=== PATIENT | female | born 1985 | race Caucasian/White ===

== ENCOUNTER → 2018-09-16 | Outpatient (CLI) | payer OTHER | LOC: FIMAGING 12:09 | PROVIDERS: ATTEND Obstetrics & Gynecology | DX: O09.522 Supervision of elderly multigravida, second trimester (principal); Z3A.20 20 weeks gestation of pregnancy ==

== ENCOUNTER → 2018-10-16 | Outpatient (CLI) | payer OTHER | LOC: FIMAGING 13:54 | PROVIDERS: ATTEND Obstetrics & Gynecology | DX: O09.522 Supervision of elderly multigravida, second trimester (principal); Z3A.25 25 weeks gestation of pregnancy ==

== ENCOUNTER 2019-01-30 15:36 | Inpatient (IN) | payer OTHER ==
[2019-01-30] MEDS ORDERED: EPSOM SALT 454 GM TP PRN (16:16)
[2019-01-30] MEDS ORDERED: LR 1,000 ML IV PRN (16:16)
[2019-01-30] MEDS ORDERED: MISOPROSTOL 200 MCG TAB PO PRN (16:16)
[2019-01-30] MEDS ORDERED: LIDOCAINE 1% 300 MG/30 ML SDV SC PRN (16:16)
[2019-01-30] MEDS ORDERED: OXYTOCIN/RINGERS LACTATE 1,000 ML IV PRN (16:16)
[2019-01-30] MEDS ORDERED: IBUPROFEN 600 MG TAB PO PRN (16:16)
[2019-01-30] MEDS ORDERED: AMMONIA AROMATIC 1 EACH AMP IH PRN (16:16)
[2019-01-30] MEDS ORDERED: OLIVE OIL 118 ML BTL MISC PRN (16:16)
[2019-01-30] MEDS ORDERED: TERBUTALINE SULFATE 1 MG/ML VIAL IV PRN (16:16)
--- NOTE | 2019-01-30 17:04 | PDGENHP ---
History and Physical - Chief Complaint contractions - History of Present Illness 33 at 40w1d here for contractions. Was seen in the office this morning and Dr. Graff stripped her membranes - was 2cm and 80% effaced. Right after lunch, started having intense contractions. Good FM, no VB, no LOF. NO ssx PIH. care at [facility]. c/b: 1) AMA - neg NIPT 2) CF carrier - neg 3) Hx of pp hemorrhage - atony, had Braden's curette 3) Rh neg - received Rhogam 28 weeks labs: B neg Innatal neg Rubella - low positive immune GBS neg RPR - NR HbsAg neg HIV neg Std panel -neg parvo virus nonimmune pap NIL GC/Chl neg 1 hr GTT 71 AB screen neg Varicella imm Ob hx - 10/02 8#11oz, 40w2d, c/b retained placenta, atony, Braden's curette at bedside. History Information - Allergies/Home Medication List Allergies/Adverse Reactions: No Known Allergies Allergy (Unverified 09/20/15 19:09) Home Medications: Colace 100 MG (OTC) 1 cap PO DAILY 09/20/15 [Last Taken 09/20/15] Feosol 1 cap PO DAILY 09/20/15 [Last Taken 09/20/15] 1 tab PO DAILY 09/20/15 [Last Taken 09/20/15] I have personally reviewed and updated: family history, medical history, social history, surgical history - Past Medical History Additional medical history: anxiety. hx of pyelonephritis. hx of migraines. CF carrier - Surgical History Reports: appendectomy (1999) Additional surgical history: wisdom teeth - Family History Positive for: asthma (Mother and brother), CAD (mother with SVT and thyroid disease, MGF A fib,) Additional family history: F, p GM, PGF - anxiety. MGM - smoker, lung ca. PGM - Alzheimers. MGF - Parkinson's. Puncle - colon ca. F - colon polyps - Social History Smoking Status: Never smoked Alcohol Use: None Drug Use: None Review of Systems Review of Systems: ROS: 10pt was reviewed & negative except for what was stated in HPI & below Physical Exam Physical Exam: FHR - 130s, reactive, Cat 1, mod variability toco - q 2-3 min SVE - 4-5 / 90/ -1 per Yoli RN at 1600 36.4 20 74 121/71 100% on RA Constitutional: no apparent distress, appears nourished Eyes: PERRL, anicteric sclera, EOMI Ears, Nose, Mouth, Throat: moist mucous membranes, hearing normal, ears appear normal Cardiovascular: regular rate and rhythym Respiratory: no respiratory distress Gastrointestinal: normoactive bowel sounds, other (gravid, term) Genitourinary: no bladder fullness Skin: warm, normal color Musculoskeletal: full muscle strength, no muscle tenderness Neurologic: AAOx3 Psychiatric: interacting appropriately, not anxious Lab Data & Imaging Review 01/30/19 16:45 Assessment & Plan Assessment: 33 at 40w1d in active labor. Uncomplicated . GBS neg Expectant mgmt, anticipate vag delivery. Eloina Holliday MD, FACOG [facility]
[2019-01-30 17:10] LABS: PLATELET COUNT 135 10^3/uL (150-400)
--- NOTE | 2019-01-30 19:58 | OBPP ---
Progress Note Assessment/Plan: Assessment:33 at 40w1d in active labor, making great progress. Declines AROM. Plan: Expectant mgmt, anticipate vag delivery. Eloina Holliday MD, FACOG 01/30/19 19:56 Subjective/ Course: 01/30/19 19:58 Feeling more pressure to push. Objective: 01/30/19 16:45 Patient ABO/Rh B NEGATIVE 01/30/19 16:45
--- NOTE | 2019-01-30 20:47 | OBPROG ---
Labor Progress Note Assessment/Plan: Assessment: Plan: Objective: 01/30/19 16:45 Patient ABO/Rh B NEGATIVE 01/30/19 16:45 Oxytocin Orders Assessment - Pre-Induction/Augmentation Assessment Gestational Age: 40 week(s) and 1 day(s) ICD10 Worksheet Patient Problems: Problems Problem Status Onset Delivery normal Acute First stage of labor Acute Retained placenta Acute
--- NOTE | 2019-01-30 20:53 | OBDEL ---
Info Type: Vaginal Presentation at Delivery: Vertex L&D Analgesia/Anesthesia Type: Local (local for 2nd degree lac repair), Nitrous GBS+: No - Hospital Course Intrapartum: 01/30/19 20:55 Pt arrived at 4-5 cm dilated and progressed without incident, pushed for less than 10 minutes. Only Nitrous oxide for pain control. Indications for Delivery: Spontaneous Labor Vaginal Delivery - Delivery Provider Delivery Physician/CNM: Eloina Holliday - Labor and Delivery Onset of Contractions Date: 01/30/19 Onset of Contractions Time: 13:00 Rupture of Membranes Date: 01/30/19 Rupture of Membranes Time: 19:59 Rupture of Membranes Type: Spontaneous Amniotic Fluid Color: Clear Dilation Complete Date: 01/30/19 Dilation Complete Time: 20:10 Placenta Delivery Date: 01/30/19 Placenta Delivery Time: 20:27 Total Hours of Labor: 7 Laceration: 2nd Degree Repair: 3-0, Vicryl Vaginal Sponge Count Correct: Yes Vaginal Needle Count Correct: Yes Vaginal Sweep Performed: Yes EBL: 300 Delivery Events: Nuchal Cord (x1 reduced on the perineum) Delivery Comment: Pt progressed to complete about 4 hours after arrival, without any intervention. SROM occurred when she was 9 cm dilated. She progressed to complete about 10 minutes later. She pushed for less than 10 minutes, and delivered a male , SONDRA, over intact perineum. One nuchal cord reduced on the perineum. NO dystocia. Gentle traction on the vertex with easy delivery of body, right shoulder anterior. Baby delivered to maternal abdomen. 1 min delay before cord was clamped and cut. Cord blood obtained. Placenta delivered spontaneously 8 min after delivery of the infant. 2nd degree laceration identified and repaired with 3.0 Vicryl. Bilateral periurethral superficial lacerations were hemostatic, so no repair indicated. Placenta appeared complete and intact. Sponge, lap and needle counts were correct x 2. and pt left stable in room with RN. Lares Data NYAELY: 01/29/19 Gestational Age: 40 week(s) and 1 day(s) [place] Delivery Date: 01/30/19 Delivery Time: 20:19 Sex of Infant: Male Score (1 Min): 8 Score (5 Min): 9 ICD10 Worksheet Patient Problems: Problems Problem Status Onset Delivery normal Acute First stage of labor Acute Retained placenta Acute
[2019-01-30] MEDS ORDERED: HYDROCORTISONE 0.5% CREAM TP PRN (21:18)
[2019-01-30] MEDS ORDERED: ACETAMINOPHEN 325 MG TAB PO PRN (21:18)
[2019-01-30] MEDS ORDERED: SIMETHICONE 80 MG TAB CHEW PO PRN (21:18)
[2019-01-31] MEDS: IBUPROFEN 600 MG TAB PO PRN ×4 (03:08→22:37)
[2019-01-31] MEDS: DOCUSATE SODIUM 100 MG CAP PO PRN ×2 (10:27→21:07)
[2019-01-31] MEDS ORDERED: MEASLES,MUMPS&RUBELLA VACC/PF 0.5 ML VIAL SC ONE ×2 (11:37→21:00)
[2019-01-31] MEDS: FERRO-SEQUELS 65 MG TAB.ER PO SCH (17:37)
--- NOTE | 2019-01-31 18:43 | OBPP ---
Progress Note Assessment/Plan: Assessment: PPD 1 s/p B neg Rub low imm Plan: routine care 01/31/19 18:39 Subjective/ Course: 01/31/19 18:40 Pt doing well - bld had increased this am a bit but now much less. Baby latching well. urinating fine. no BM yet. mod cramps but ok with ibu. some sleep last noc. Objective: 01/31/19 06:10 Patient ABO/Rh B NEGATIVE 01/30/19 22:20 Temp Pulse Resp BP Pulse Ox 36.2 C 84 16 116/72 95 01/31/19 16:41 01/31/19 16:41 01/31/19 16:41 01/31/19 16:41 01/31/19 16:41 Uterine Position/Fundal Height: Umbilicus -2 Uterine Tone: Firm Physical Exam - Physical Exam Abdomen: non-tender, soft, other ( FF at umb -2) Extremities: non-tender, pedal edema (none) Skin: normal color, warm/dry Neuro/Psych: alert, normal mood/affect
[2019-02-01] MEDS: IBUPROFEN 600 MG TAB PO PRN ×2 (04:42→11:16)
[2019-02-01 08:24] VITALS: BP 107/68
--- NOTE | 2019-02-01 09:50 | OBPP ---
Progress Note Assessment/Plan: Assessment:33 G2 now P2, PPD #2, doing well, ready to go home. Plan:DC home. Reviewed std pp vag deliv instructions. Reviewed ssx pp depression (has a hx of pp dep and has her own therapist). Eloina Holliday MD, FACOG 02/01/19 09:50 Subjective/ Course: 01/31/19 18:40 Pt doing well - bld had increased this am a bit but now much less. Baby latching well. urinating fine. no BM yet. mod cramps but ok with ibu. some sleep last noc. 02/01/19 09:53 Pt doing well. going well. Lochia has decreased. Ambulating, voiding, had BM and missy reg diet without difficulty. Has received MMR and Rhogam. Objective: 01/31/19 06:10 Patient ABO/Rh B NEGATIVE 01/30/19 22:20 Temp Pulse Resp BP Pulse Ox 36.0 C 77 14 107/68 95 02/01/19 08:10 02/01/19 08:10 02/01/19 08:10 02/01/19 08:10 02/01/19 08:10 gen - pleasant, NAD CV - RRR chest - CTAB breasts - soft, baby currently abd - soft, fundus firm at u-2 ext - calves NT, trace BLE edema perineum - repair intact, purplish ecchymosis present, minimal edema Uterine Position/Fundal Height: Umbilicus -2 Uterine Tone: Firm
[2019-02-01] MEDS: FERRO-SEQUELS 65 MG TAB.ER PO SCH (11:16)
[2019-02-01] MEDS: DOCUSATE SODIUM 100 MG CAP PO PRN (11:16)
== END 2019-02-01 13:19 | disposition home or self-care (01) | DRG 807 ==
LOC: FLD 15:36 → FOB 22:20
PROVIDERS: ADMIT Hospitalist; ATTEND Hospitalist
PROC: 10E0XZZ Delivery of Products of Conception, External Approach (ICD-10-PCS; principal; 2019-01-30)
PROC: 0KQM0ZZ Repair Perineum Muscle, Open Approach (ICD-10-PCS; 2019-01-30)
DX: O48.0 Post-term pregnancy (principal); O69.9XX0 Labor and delivery complicated by cord complication, unspecified, not applicable or unspecified; O70.1 Second degree perineal laceration during delivery; Z3A.40 40 weeks gestation of pregnancy; Z37.0 Single live birth
CPT/HCPCS: J2590; J3105